=== PATIENT | female | born 1945 | race Two or more races ===

== ENCOUNTER 2020-01-11 20:33 | Emergency (ER) | payer OTHER ==
[~2020-01-11] VITALS: Ht 157.5 cm; Wt 68.5 kg
[~2020-01-11 20:33] MED LIST: ASPI81CH43 PO; BACL10TA PO; GABA300C11 PO; GEM600T GT; LOS50T GT; METF-372 PO; METO25TA5 PO; MULTLIQ36 OR; OMEGCAP2 OR; PRAV20TA3 PO; [UNRECOGNIZED DRUG - CODE] PO
[2020-01-11 20:55] VITALS: BP 162/67
== END 2020-01-11 22:11 | disposition home or self-care (01) ==
LOC: ER 20:33
DX: T22.211A Burn of second degree of right forearm, initial encounter (principal); T31.0 Burns involving less than 10% of body surface; X08.8XXA Exposure to other specified smoke, fire and flames, initial encounter; Y93.89 Activity, other specified; Y92.89 Other specified places as the place of occurrence of the external cause; Y99.8 Other external cause status
CPT/HCPCS: 82962

== ENCOUNTER 2024-06-10 15:20 | Emergency (ER) | payer OTHER ==
[~2024-06-10] VITALS: Ht 162.6 cm; Wt 68.1 kg
[~2024-06-10 15:20] MED LIST changes: +GABA-1254 PO; -GABA300C11 PO
[2024-06-10 15:30] VITALS: BP 102/82; PULSE 87; RESP 18; O2SAT 97
--- NOTE | 2024-06-10 16:13 | ED.PDOC ---
History of Present Illness HPI Comments 79 y/o F, with a Hx of DM, HLD, and HTN, presents with c/o foreign object in left eye, today. Patient comments on coming to the ED, due to suspecting on feeling "something" in the upper portion of her left eye, today. She states on having another incident on having an foreign object in her left eye and rubbing it in an attempt to dislodge it 4 days ago and noticing blood in said eye and going to urgent care the next day. She denies any additional relevant or pertinent history, such as recent injuries. She refutes having any blurry vision, dizziness, light sensitivity, or other associated symptoms or modifiers at this time. Chief Complaint: Eye Problem Time Seen by MD: 15:50 Primary Care Provider: ASH Reviewed Notes: Nurses Notes, Medications, Allergies Allergies: Coded Allergies: Iodine (Verified Allergy, Unknown, 02/27/14) Home Meds Reported Medications Metoprolol Tartrate (Metoprolol Tartrate) 25 Mg Tab, 25 MG PO DAILY for 30 Days, MG 04/23/17 Multiple Vitamins W/ Minerals (MULTIVITAMIN) Liq, 1 TAB OR DAILY, LIQ 12/29/16 Vitamin E (Vitamin E Complex) 400 Unit Cap, PO DAILY, CAP 12/29/16 [place]-3 Fatty Acids (Fish Oil) Cap, 1 OR DAILY, CAP 12/29/16 Aspirin (Asa) 81 Mg Ch, 81 MG PO DAILY 12/29/16 Baclofen (Baclofen) 10 Mg Tab, 10 MG PO HS for 30 Days, MG 12/29/16 Gabapentin (NEURONTIN CAPSULE) 300 Mg Cp, 300 MG PO QHSP PRN for MODERATE PAIN, CP 02/27/14 Pravastatin Sodium (PRAVACHOL TABLET) 20 Mg Tb, 40 MG PO 02/27/14 Losartan Potassium (COZAAR TABLET) 50 Mg Tb, 50 MG GT 02/27/14 Gemfibrozil (LOPID TABLET) 600 Mg Tb, 600 MG GT DAILY 02/27/14 Metformin Hydrochloride (Metformin Hcl) 1,000 Mg Tab, 1 TAB PO BID, #60 TAB 5 Refills 02/27/14 Information Source: Patient Mode of Arrival: Ambulatory Severity: Moderate Timing: Hours Duration: Since onset Prehospital treatment: None Past Medical History PAST MEDICAL HISTORY: DM, High Lipids, HTN Surgical History: [employer] History: No Pertinent [employer] History Family History Family History: Reviewed,noncontributory to illness, No family hx of Cancer, No family hx of DM, No family hx of Heart rogelio, No family hx of HTN, No family hx ofKidney rogelio, No family hx of Liver rogelio, No family hx of Lung rogelio, No family hx of Stroke Social History Smoker: Non-Smoker Alcohol: Rarely Drugs: Denies Drug Use Lives In: Home Constitutional: denies: chills, diaphoresis, fatigue, fever, malaise, sweats, weakness, others EENTM: reports: eye redness, others (foreign object in left eye ); denies: blurred vision, double vision, ear bleeding, ear discharge, ear drainage, ear pain, ear ringing, eye pain, hearing loss, mouth pain, mouth swelling, nasal discharge, nose bleeding, nose congestion, nose pain, photophobia, tearing, throat pain, throat swelling, voice changes Respiratory: denies: cough, hemoptysis, orthopnea, SOB at rest, shortness of breath, SOB with excertion, stridor, wheezing, others Cardiovascular: denies: chest pain, dizzy spells, diaphoresis, Dyspnea on exertion, edema, irregular heart beat, left arm pain, lightheadedness, palpitations, PND, syncope, others Gastrointestinal: denies: abdomen distended, abdominal pain, blood streaked bowels, constipated, diarrhea, dysphagia, difficulty swallowing, hematemesis, melena, nausea, poor appetite, poor fluid intake, rectal bleeding, rectal pain, vomiting, others Genitourinary: denies: abnormal vagina bleeding, burning, dyspareunia, dysuria, flank pain, frequency, hematuria, incontinence, pain, , vagina discharge, urgency, others Neurological: denies: dizziness, fainting, headache, left sided numbness, left sided weakness, numbness, paresthesia, pre-existing deficit, right sided numbness, right sided weakness, seizure, speech problems, tingling, tremors, weakness, others Musculoskeletal: denies: back pain, gout, joint pain, joint swelling, muscle pain, muscle stiffness, neck pain, others Integumetry: denies: bruises, change in color, change in hair/nails, dryness, laceration, lesions, lumps, rash, wounds, others Allergic/Immunocompromised: denies: Difficulty Healing, Frequent Infections, Hives, Itching, others Hematologic/Lymphatic: denies: anemia, blood clots, easy bleeding, easy bruising, swollen glands, others All Other Systems: Reviewed and Negative (negatvie unless otherwise stated above or in HPI) Physical Exam General Appearance: No Apparent Distress, Normal HEENT: Normal ENT Inspection, Pharynx Normal, TMs Normal, Other (Fluorescein exam done on the left eye with no uptake stain, I was flushed with normal saline, no complications.) Neck: Full Range of Motion, Non-Tender, Normal, Normal Inspection Respiratory: Chest Non-Tender, Lungs Clear, No Accessory Muscle Use, No Respiratory Distress, Normal Breath Sounds Cardiovascular: No Edema, No JVD, No Murmur, No Gallop, Normal Peripheral Pulses, Regular Rate/Rhythm Breast Exam: Deferred Gastrointestinal: No Organomegaly, Non Tender, No Pulsatile Mass, Normal Bowel Sounds, Soft Genitalia: Deferred Pelvic: Deferred Rectal: Deferred Extremities: No calf tenderness, Normal capillary refill, Normal inspection, Normal range of motion, Non-tender, No pedal edema Musculoskeletal : Apperance: Normal Neurologic: Alert, financial compliance manager II-XII nml as Tested, No Motor Deficits, Normal Affect, Normal Mood, No Sensory Deficits Cerebellar Function: Normal Reflexes: Normal Skin: Dry, Normal Color, Warm Lymphatic: No Adenopathy Was a procedure done? Was a procedure done?: No Differential Dx Considerations may include: foreign body, glaucoma, conjunctivitis X-Ray, Labs, Meds, VS Vital Signs Date Time Temp Pulse Resp B/P (MAP) Pulse Ox O2 Delivery O2 Flow Rate FiO2 06/10/24 15:30 97.8 87 18 102/82 (89) 97 Current Medications Medications (Trade) Dose Ordered Sig/Tavo Route Start Time Stop Time Status Last Admin Fluorescein Sodium (Ful-Jodi) 1 mg ONCE ONCE EACHEYE 06/10/24 16:15 06/10/24 16:16 DC 06/10/24 16:39 Tetracaine HCl (Tetracaine 0.5% Opth Soln) 1 drop ONCE ONCE EACHEYE 06/10/24 16:15 06/10/24 16:16 DC 06/10/24 16:39 X-Ray, Labs, Meds, VS Comment Imaging: X-rays and CT scans were reviewed and interpreted by this provider, imaging shows no fractures and no pathological disease. Pending radiology review. Laboratory: Labs reviewed and interpreted by this provider. No significant abnormalities noted. Patient has prior medical visits reviewed. Med reconciliation performed Vital signs reviewed Time of 1ST Reevaluation: 16:10 Reevaluation 1ST: Unchanged Patient Education/Counseling: Diagnosis, Treatment, Need For Follow Up (Patient advised to follow-up in the emergency room in the next 24 to 48 hours if symptoms do not improve. Advised follow-up with PCP in the next 3 to 5 days. Patient verbalized understanding. ) Family Education/Counseling: No Family Present Departure 1 Departure Time of Disposition: 17:00 Impression: Primary Impression: Subconjunctival hemorrhage Qualified Codes: H11.32 - Conjunctival hemorrhage, left eye Disposition: HOME / SELF CARE / HOMELESS Condition: Fair Discharged With: Self Comments Patient advised to follow up with Ophthalmology if symptoms symptoms worsen or visual changes. Critical Care Note Critical Care Time?: No Stability Stability form required: No Heart Score Heart Score: Heart Score Response (Comments) Value History N/A 0 EKG N/A 0 Age N/A 0 Risk Factors N/A 0 Troponin N/A 0 Total 0 I personally scribed for RONAN VARGAS ([email or web address]) on 06/10/24 at 16:13. Electronically submitted by Ap Robles ([email or web address]). RONAN VARGAS Jun 10, 2024 16:13
[2024-06-10] MEDS: FLUORESCEIN SOD OPTH TEST STRIP EACHEYE ONE (16:39)
[2024-06-10] MEDS: TETRACAINE HCL 0.5% OPTH(EYE) SOLN 4ML EACHEYE ONE (16:39)
== END 2024-06-10 18:00 | disposition home or self-care (01) ==
LOC: ER 15:20
DX: H11.32 Conjunctival hemorrhage, left eye (principal); E11.9 Type 2 diabetes mellitus without complications; E78.5 Hyperlipidemia, unspecified; I10 Essential (primary) hypertension; Z79.82 Long term (current) use of aspirin; Z79.84 Long term (current) use of oral hypoglycemic drugs; Z79.899 Other long term (current) drug therapy; Z88.8 Allergy status to other drugs, medicaments and biological substances; Z91.041 Radiographic dye allergy status